=== PATIENT | male | born 1985 | race Caucasian/White ===

== ENCOUNTER 2019-03-22 19:16 | Emergency (ER) | payer BC ==
[~2019-03-22] VITALS: Ht 170.2 cm; Wt 68.9 kg
[2019-03-22 19:46] VITALS: Ht 170.2 cm; Wt 68.9 kg
[2019-03-22 22:00] VITALS: BP 121/82
== END 2019-03-22 22:00 | disposition home or self-care (01) ==
LOC: ED 19:16
DX: S61.237A Puncture wound without foreign body of left little finger without damage to nail, initial encounter (principal); W45.8XXA Other foreign body or object entering through skin, initial encounter; Y93.89 Activity, other specified; Y92.89 Other specified places as the place of occurrence of the external cause; Y99.8 Other external cause status
CPT/HCPCS: A4570